=== PATIENT | female | born 1950 | race Caucasian/White ===

== ENCOUNTER 2020-01-27 11:04 | Inpatient (IN) | payer OTHER ==
[~2020-01-27] VITALS: Ht 157.5 cm; Wt 61.2 kg
[2020-01-27 11:27] VITALS: Ht 157.5 cm; Wt 61.2 kg
[2020-01-27 11:56] LABS: BASOPHIL % 0.5 % (0-2); PLATELET COUNT 276 x10^3mcL (130-400); RED CELL DISTRIBUTION WIDTH 13.5 % (11.5-14.5)
[2020-01-27 13:02] LABS: CALCIUM 9.2 mg/dL (8.5-10.1); CARBON DIOXIDE 25.8 mmol/L (21-32); CHLORIDE SERUM 101 mmol/L (98-107); CREATININE SERUM 0.8 mg/dL (0.6-1.0); GFR1 > 60 mL/min; GLUCOSE SERUM 94 mg/dL (74-106); POTASSIUM SERUM 4.3 mmol/L (3.5-5.1); SODIUM SERUM 135 mmol/L (136-145)
[2020-01-27 13:07] LABS: ALBUMIN 4.1 g/dL (3.4-5.0); ALKALINE PHOSPHATASE 76 U/L (46-116); ALT/SGPT 33 U/L (14-59); AST/SGOT 22 U/L (15-37); BILIRUBIN TOTAL 0.4 mg/dL (0.20-1.00); TOTAL PROTEIN, SERUM 6.9 g/dL (6.4-8.2)
[2020-01-27] MEDS ORDERED: PRA40 PO (13:37)
[2020-01-27] MEDS ORDERED: XOP1.25 (13:38)
[2020-01-27] MEDS ORDERED: CALCIUM 500-VI1 EACH PO (13:39)
[2020-01-27] MEDS ORDERED: TIROSINT25 MC1 PO (13:39)
[2020-01-27] MEDS ORDERED: AZELASTINE HYDRO6 ML (13:40)
[2020-01-27] MEDS ORDERED: DULOXETINE HYDR30 MG PO (13:40)
[2020-01-27] MEDS ORDERED: DICLOFENAC SOD100 GM (13:40)
[2020-01-27] MEDS ORDERED: COZAAR50 M1 PO (13:41)
[2020-01-27] MEDS ORDERED: SPIRIVA18 MC1 IH (13:41)
[2020-01-27] MEDS ORDERED: ASPIRIN FOR CHI81 M1 PO (13:41)
[2020-01-27] MEDS ORDERED: AMLODIPINE BESY10 M2 PO (13:42)
[2020-01-27 13:59] LABS: CHOLESTEROL/HDL RATIO 3.2; MAGNESIUM 2.3 mg/dL (1.8-2.4)
[2020-01-27 14:31] VITALS: BP 150/75
[2020-01-27 17:10] VITALS: BP 150/75
[2020-01-27 20:19] VITALS: BP 89/56
[2020-01-27 21:00] VITALS: BP 115/63
[2020-01-28 05:35] VITALS: BP 138/70
[2020-01-28 06:22] LABS: CALCIUM 9.5 mg/dL (8.5-10.1); CARBON DIOXIDE 28.5 mmol/L (21-32); CHLORIDE SERUM 101 mmol/L (98-107); CREATININE SERUM 0.7 mg/dL (0.6-1.0); GFR1 > 60 mL/min; GLUCOSE SERUM 88 mg/dL (74-106); POTASSIUM SERUM 4.7 mmol/L (3.5-5.1); SODIUM SERUM 134 mmol/L (136-145)
[2020-01-28 06:43] LABS: BASOPHIL % 0.4 % (0-2); PLATELET COUNT 276 x10^3mcL (130-400); RED CELL DISTRIBUTION WIDTH 13.8 % (11.5-14.5)
[2020-01-28 08:25] VITALS: BP 126/66
[2020-01-28 11:48] VITALS: BP 108/54
[2020-01-28 16:22] VITALS: BP 103/57
[2020-01-28 21:56] VITALS: BP 104/56
[2020-01-29 05:05] VITALS: BP 100/54
[2020-01-29 08:26] VITALS: BP 125/65
[2020-01-29 15:41] VITALS: BP 127/67
[2020-01-29 16:26] VITALS: BP 127/67
== END 2020-01-29 19:36 | disposition other institution (70) | DRG 303 ==
LOC: ED 11:04 → DU 12:52
PROVIDERS: Emergency Medicine; ADMIT Internal Medicine; ATTEND Internal Medicine
DX: I25.119 Atherosclerotic heart disease of native coronary artery with unspecified angina pectoris (principal); I10 Essential (primary) hypertension; J44.9 Chronic obstructive pulmonary disease, unspecified; E03.9 Hypothyroidism, unspecified; Z88.0 Allergy status to penicillin; Z88.8 Allergy status to other drugs, medicaments and biological substances; E78.5 Hyperlipidemia, unspecified; Z20.828 Contact with and (suspected) exposure to other viral communicable diseases
CPT/HCPCS: 83880; A9500; G0378; J2785; J3535; Q0092